=== PATIENT | male | born 1995 | race African-American/Black ===

== ENCOUNTER 2022-07-23 11:44 | Emergency (ER) | payer MEDICAID ==
[~2022-07-23] VITALS: Ht 175.3 cm; Wt 77.0 kg
[2022-07-23 11:50] VITALS: BP 119/86
[2022-07-23] MEDS ORDERED: DOXY100T28 PO (13:43)
[2022-07-25 04:07] LABS: NEISSERIA GONORRHOEAE NAA Negative (Negative)
== END 2022-07-23 14:45 | disposition home or self-care (01) ==
LOC: ER 12:17
DX: Z20.2 Contact with and (suspected) exposure to infections with a predominantly sexual mode of transmission (principal)
CPT/HCPCS: 87491; 87591; 99283